=== PATIENT | male | born 1975 | race Caucasian/White ===

== ENCOUNTER 2016-08-20 08:30 | Day surgery (SDC) | payer MEDICAID ==
[~2016-08-20] VITALS: Ht 177.8 cm; Wt 89.4 kg
--- NOTE | ~2016-08-20 | OP ---
PATIENT NAME: SANGEETA YI MEDICAL RECORD: [id number] :75 LOCATION:[facility] ADMISSION DATE: SURGEON: STEVE UMAÑA DO OPERATION DATE: 08/20/16 PROCEDURE PERFORMED: Left tibia removal of hardware and excision of exostosis left anterior tibia. PREPROCEDURE DIAGNOSIS: Painful hardware left tibia and exostosis on left anterior tibia. POSTPROCEDURE DIAGNOSIS: Painful hardware left tibia and exostosis on left anterior tibia. SURGEON: Steve Umaña DO DOCKMASTER: Sadie Henderson APN DESCRIPTION OF PROCEDURE: The patient was taken to the operative suite after informed consent was obtained in the preoperative area as questions were solicited and answered. He agreed to proceed forward with the above procedure. As he entered the operative suite he was placed supine under general anesthesia. A timeout was then performed indicating the correct site and procedure as well as the correct patient. The left lower extremity was then prepped and draped in sterile fashion using ChloraPrep and the screws in the proximal tibia were then identified and extracted as well as the two screws in the distal tibia. Two in the proximal, two in the distal removed. Attention was then drawn to the anterior tibial where he had a spike of bone which was protruding that bothered him and incision was made directly over that. Rongeur was used to remove most of the bone and rasp was used to smooth out any rough areas. Bone wax was then placed over that site. The wounds were then just irrigated with normal saline and closed with 3-0 Monocryl in a horizontal mattress fashion. A Adaptic, 4x4 and Tegaderm were then placed over the incision sites and patient was awoken in stable condition and taken to the Post Anesthesia Care Unit in stable condition. STEVE UMAÑA DO CC: [id number] DICTATION DATE: 08/20/162117 FACULTY RESEARCH PHYSICIAN: HEIDI 08/20/162117 [facility] 08/20/16 [id number] [place] [address]
[2016-08-20 07:37] VITALS: BP 130/80; Ht 177.8 cm; Wt 89.4 kg
[~2016-08-20 08:30] MED LIST: ADDERALL 30 MG30 MG PO; AMBIEN10 MG PO; HYDROCODONE-APA1 TAB PO; KLONOPIN1 MG PO; ROXICODONE15 MG PO; XANAX1 MG PO
[2016-08-20] MEDS ORDERED: ROXICODONE15 MG PO ×2 (11:45→11:55)
[2016-08-20] MEDS ORDERED: HYDROXYZINE HCL50 MG PO (11:46)
[2016-08-20] MEDS ORDERED: BACTRIM DS TABL1 TAB PO ×2 (11:47)
== END 2016-08-20 15:35 | disposition home or self-care (01) ==
LOC: D.OPS 08:30 → D.PAN 09:00 → D.OPS 09:00
DX: T84.84XA Pain due to internal orthopedic prosthetic devices, implants and grafts, initial encounter (principal); D16.22 Benign neoplasm of long bones of left lower limb; Z01.812 Encounter for preprocedural laboratory examination